=== PATIENT | female | born 2000 | race Caucasian/White ===

== ENCOUNTER 2021-09-23 22:04 | Emergency (ER) | payer SELFPAY ==
[~2021-09-23] VITALS: Ht 165 cm; Wt 51.0 kg
--- NOTE | 2021-09-23 23:24 | ED General ---
General Chief Complaint: Cough/Cold/Flu Symptoms Stated Complaint: FLU POSITIVE, CHEST PAIN, ABDOMINAL PAIN Nursing Triage Note: PT AMB TO ER WITH C/O RACING HEART AFTER LAYING DOWN FOR BED. PT SAID SHE CALLED 911 AND EMS ASSESSED HER BUT SHE DECIDED NOT TO COME AT THAT TIME. PT SAID HR GOT UP IN THE 150S TONIGHT. PT ALSO +FLU 2 DAYS AGO, COVID + SEP 09 Source of Information: Patient History of Present Illness Date Seen by Provider: Sep 23, 2021 Time Seen by Provider: 23:10 Initial Comments PT ARRIVES VIA POV FROM HOME PT STATES SHE TESTED + FOR COVID ON 09/09/21--NO TREATMENT AT THAT TIME PT BEGAN WITH COUGH AND CONGESTION, SLIGHT SHORTNESS OF BREATH, DECREASED APPETITE, HEADACHE AND BODY ACHES, AND SORE THROAT STATES SHE STARTED OTHER SYMPTOMS 09/21/21 AND TESTED + FOR INFLUENZA A AT THAT VISIT--SEEN AT [facility] BOTH TIMES HAD INCREASED COUGH, NO IMPROVEMENT IN SORE THROAT, LOW GRADE FEVER AND GI SYMPTOMS WAS GIVEN RX FOR AMOXIL AND PREDNISONE ON 09/21/21 HAS ALSO BEEN TAKING TYLENOL COLD/FLU COUGH/CONGESTION STATES TONIGHT, WHILE SHE WAS LAYING DOWN TO GO TO SLEEP AND HER HEART STARTED RACING AND CALLED EMS. IT WENT AWAY, AND THEN REFUSED TRANSPORT. IT HAPPENED AGAIN AND SHE CALLED EMS AGAIN AND THEN REFUSED TRANSPORT, THEN DECIDED TO COME HERE AFTER THEY LEFT. EACH EPISODE LASTED 10-20 MINUTES, AND HEART RATE GOT UP HIGH 150, AND SHE FELT LIKE SHE MIGHT PASS OUT NO CHEST PAIN NO SHORTNESS OF BREATH HAS HAD NAUSEA, VOMITED X 5-6 YESTERDAY--NO VOMITING TODAY, AND DIARRHEA--X 2-3 TODAY HAS LOST HER TASTE AND SMELL NO ABDOMINAL PAIN NO FEVER TODAY HEADACHE AND BODY ACHES ARE BETTER SHORTNESS OF BREATH HAS RESOLVED IS VOIDING A NORMAL AMOUNT NO PRIOR HISTORY OF CARDIAC OR RESPIRATORY PROBLEMS. NO CHRONIC MEDICAL PROBLEMS OF ANY KIND LMP: 2 1/2 WEEKS AGO. NORMAL. LIGHT SPOTTING, ON OCP'S [facility] PT IS ALSO A [employer] STUDENT FROM [employer]. Allergies and Home Medications Allergies Coded Allergies: No Known Drug Allergies (Unverified , 09/23/21) Patient Home Medication List Home Medication List Reviewed: Yes Ondansetron (Ondansetron Odt) 4 Mg Tab.rapdis, 4 MG PO Q4H Prescribed by: GILBERTO FRANKLIN on 09/24/21 0036 Review of Systems Review of Systems Constitutional: see HPI, dizziness EENTM: see HPI Respiratory: see HPI, cough Cardiovascular: see HPI, palpitations Gastrointestinal: see HPI; No abdominal pain; diarrhea, loss of appetite, nausea, vomiting Genitourinary: no symptoms reported Musculoskeletal: see HPI Skin: no symptoms reported Psychiatric/Neurological: See HPI Hematologic/Lymphatic: No Symptoms Reported Immunological/Allergic: no symptoms reported Past Znlefpw-Axbgfk-Idgunw Hx Patient Social History Tobacco Use?: No Substance use?: No Alcohol Use?: Yes Alcohol type: Wine Alcohol Frequency: Rarely Pt feels they are or have been: No Immunizations Up To Date Influenza Vaccine Up-to-Date: No; Not Current First/Initial COVID19 Vaccinat: MARCH 2021 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 oz. kg; 18.00 BMI Method: General Appearance: No Apparent Distress, WD/WN, Other (DOES NOT APPEAR ILL OR TO BE IN ANY DISCOMFORT OR DISTRESS) HEENT: PERRL/EOMI, TMs Normal, Pharynx Normal, Moist Mucous Membranes, Other (NASAL CONGESTION, CLEAR POST NASAL DRAINAGE) Neck: Normal Inspection Respiratory: Normal Breath Sounds, No Accessory Muscle Use, No Respiratory Distress Cardiovascular: No Edema, No JVD, No Murmur, Tachycardia (110) Gastrointestinal: Non Tender, Soft Back: No CVA Tenderness Extremity: Normal Capillary Refill, Normal Inspection, No Pedal Edema Neurologic/Psychiatric: Alert, Oriented x3, No Motor/Sensory Deficits, Normal 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, 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 as Tested Skin: Normal Color, Warm/Dry; No Rash Progress/Results/Core Measures Suspected Sepsis SIRS Temperature: Pulse: 95 Respiratory Rate: 18 Laboratory Tests 09/23/21 23:28: White Blood Count 5.1 Blood Pressure 124 /79 Mean: 94 Laboratory Tests 09/23/21 23:28: Creatinine 0.80, Platelet Count 179, Total Bilirubin 0.2 Results/Orders Lab Results Laboratory Tests Test 09/23/21 23:28 Range/Units White Blood Count 5.1 4.3-11.0 10^3/uL Red Blood Count 4.49 3.80-5.11 10^6/uL Hemoglobin 13.3 11.5-16.0 g/dL Hematocrit 40 35-52 % Mean Corpuscular Volume 90 80-99 fL Mean Corpuscular Hemoglobin 30 25-34 pg Mean Corpuscular Hemoglobin Concent 33 32-36 g/dL Red Cell Distribution Width 12.1 10.0-14.5 % Platelet Count 179 130-400 10^3/uL Mean Platelet Volume 9.8 9.0-12.2 fL Immature Granulocyte % (Auto) 0 % Neutrophils (%) (Auto) 92 H 42-75 % Lymphocytes (%) (Auto) 6 L 12-44 % Monocytes (%) (Auto) 2 0-12 % Eosinophils (%) (Auto) 0 0-10 % Basophils (%) (Auto) 0 0-10 % Neutrophils # (Auto) 4.7 1.8-7.8 10^3/uL Lymphocytes # (Auto) 0.3 L 1.0-4.0 10^3/uL Monocytes # (Auto) 0.1 0.0-1.0 10^3/uL Eosinophils # (Auto) 0.0 0.0-0.3 10^3/uL Basophils # (Auto) 0.0 0.0-0.1 10^3/uL Immature Granulocyte # (Auto) 0.0 0.0-0.1 10^3/uL Neutrophils % (Manual) 87 % Lymphocytes % (Manual) 4 % Monocytes % (Manual) 2 % Eosinophils % (Manual) 0 % Basophils % (Manual) 0 % Band Neutrophils 7 % Blood Morphology Comment NORMAL Urine Color YELLOW Urine Clarity CLEAR Urine pH 6.0 5-9 Urine Specific [place] 1.015 L 1.016-1.022 Urine Protein NEGATIVE NEGATIVE Urine Glucose (UA) 3+ H NEGATIVE Urine Ketones NEGATIVE NEGATIVE Urine Nitrite NEGATIVE NEGATIVE Urine Bilirubin NEGATIVE NEGATIVE Urine Urobilinogen 0.2 < = 1.0 MG/DL Urine Leukocyte Esterase NEGATIVE NEGATIVE Urine RBC (Auto) NEGATIVE NEGATIVE Urine RBC NONE /HPF Urine WBC 0-2 /HPF Urine Squamous Epithelial Cells 2-5 /HPF Urine Crystals NONE /LPF Urine Bacteria FEW H /HPF Urine Casts NONE /LPF Urine Mucus NEGATIVE /LPF Urine Culture Indicated YES Sodium Level 136 135-145 MMOL/L Potassium Level 3.9 3.6-5.0 MMOL/L Chloride Level 106 98-107 MMOL/L Carbon Dioxide Level 18 L 21-32 MMOL/L Anion Gap 12 5-14 MMOL/L Blood Urea Nitrogen 7 7-18 MG/DL Creatinine 0.80 0.60-1.30 MG/DL Estimat Glomerular Filtration Rate 108 BUN/Creatinine Ratio 9 Glucose Level 167 H 70-105 MG/DL Calcium Level 8.9 8.5-10.1 MG/DL Corrected Calcium 8.8 8.5-10.1 MG/DL Total Bilirubin 0.2 0.1-1.0 MG/DL Aspartate Amino Transf (AST/SGOT) 15 5-34 U/L Alanine Aminotransferase (ALT/SGPT) 7 0-55 U/L Alkaline Phosphatase 84 40-136 U/L Total Protein 7.4 6.4-8.2 GM/DL Albumin 4.1 3.2-4.5 GM/DL Free Thyroxine 1.01 0.70-1.48 NG/DL TSH [place] Testing 0.27 L 0.35-4.94 UIU/ML My Orders Orders - GILBERTO FRANKLIN DO Ua Culture If Indicated (09/23/21 23:09) Chest 1 View, Ap/Pa Only (09/23/21 23:09) Ed Iv/Invasive Line Start (09/23/21 23:20) Urine Bedside (09/23/21 23:20) Ekg Tracing (09/23/21:20) Monitor-Rhythm Ecg Trace Only (09/23/21 23:20) Cbc With Automated Diff (09/23/21 23:20) Comprehensive Metabolic Panel (09/23/21 23:20) Thyroid Analyzer (09/23/21 23:20) Ed Iv/Invasive Line Start (09/23/21 23:20) Lactated Ringers (Lr 1000 Ml Iv Solution (09/23/21 23:30) Ondansetron Injection (Zofran Injectio (09/23/21 23:30) Manual Differential (09/23/21 23:28) Urine Culture (09/23/21 23:28) Free T4 (Free Thyroxine) (09/23/21 23:28) Ed Iv/Invasive Line Start (09/24/21 00:25) Ns Iv 1000 Ml (Sodium Chloride 0.9%) (09/24/21 00:30) Rx-Ondansetron Po (Rx-Zofran Po) (09/24/21 00:25) Medications Given in ED Current Medications Medications Dose Ordered Sig/Juan Carlos Route Start Time Stop Time Status Last Admin Dose Admin Lactated Ringer's 1,000 ml @ 0 mls/hr Q0M ONCE IV 09/23/21 23:30 09/23/21 23:31 DC 09/23/21 23:42 999 MLS/HR Ondansetron HCl 4 mg ONCE ONCE IVP 09/23/21 23:30 09/23/21 23:31 DC 09/23/21 23:42 4 MG Vital Signs/I&O 09/23/21 09/24/21 22:50 01:05 Temp 36.8 36.8 Pulse 95 84 Resp 18 18 B/P (MAP) 124/79 (94) 124/66 Pulse Ox 98 100 O2 Delivery Room Air Room Air Capillary Refill : Blood Pressure Mean: 94 Progress Note : Progress Note PLACED IN ISOLATION ROOM PPE WORN GIVEN IV FLUIDS AND ZOFRAN--FEELS BETTER HR 110 ON ARRIVAL, QUICKLY DOWN TO 80'S SHORTLY AFTER ARRIVAL, AND REMAINED IN 80'S FOR REMAINDER OF ER STAY, IN VERY REGULAR NORMAL SINUS RHYTHM NO COUGH NO DYSPNEA NO HYPOXIA NO FEVER SUSPECT PT'S SYMPTOMS ARE COMBINATION OF MILD DEHYDRATION, EFFECTS OF PREDNISONE + COLD MEDICATION. PT STATES SHE HAS NEVER TAKEN THAT MUCH PREDNISONE BEFORE. HAS TAKEN IT ONCE OR TWICE IN PAST, BUT NEVER MORE THAN 20 MG--STATES SHE HAS BEEN PRESCRIBED 40 MG FOR CURRENT SYMPTOMS ALSO SUSPECT ELEVATED BLOOD GLUCOSE IS DUE TO PREDNISONE ECG Initial ECG Impression Date: Sep 23, 2021 Initial ECG Impression Time: 23:21 Initial ECG Rate: 83 Initial ECG Rhythm: Normal Sinus (SINUS ARRHYTHMIA. ) Diagnostic Imaging Comments CXR--NO ACUTE PROCESS, PENDING RADIOLOGIST REVIEW Reviewed: Reviewed by Me Departure Impression Primary Impression: Influenza A Additional Impressions: RECENT COVID-19 VIRUS Mild dehydration MILD HYPERGLYCEMIA TRANSIENT SINUS TACHYCARDIA SUSPECTED ADVERSE EFFECT OF MEDICATION Disposition: 01 HOME, SELF-CARE Condition: Improved Departure-Patient Inst. Decision time for Depature: 00:25 Referrals: [facility] Patient Instructions: COVID-19 ED, Dehydration, Adult ED, Flu, Adult ED Add. Discharge Instructions: LOTS OF CLEAR LIQUIDS--WATER, BROTH, JELLO, GATORAD CONTINUE AMOXIL PRESCRIBED HOLD PREDNISONE USE PLAIN TYLENOL AND PLAIN IBUPROFEN NEEDED FOR PAIN OR FEVER USE FLONASE OR NASACORT NASAL SPRAY FOR NASAL CONGESTION FOLLOW UP WITH [facility]-3 DAYS IF SYMPTOMS PERSIST. All discharge instructions reviewed with patient and/or family. Voiced understan kelly. Scripts Ondansetron (Ondansetron Odt) 4 Mg Tab.rapdis 4 MG PO Q4H for Nausea/Vomiting, #10 TAB Prov: GILBERTO FRANKLIN DO 09/24/21 GILBERTO FRANKLIN DO Sep 23, 2021 23:24
[2021-09-23] MEDS ORDERED: LACTATED RINGERS 1,000 ML IV ONE (23:30)
[2021-09-23] MEDS ORDERED: ONDANSETRON 4 MG/2 ML (SDV) Z0FRAN IVP ONE (23:30)
[2021-09-23 23:38] LABS: BASOPHILS % (AUTO) 0 % (0-10); BILIRUBIN,URINE NEGATIVE (NEGATIVE); CLARITY,URINE CLEAR; COLOR,URINE YELLOW; EOSINOPHILS % (AUTO) 0 % (0-10); GLUCOSE, URINE (UA) 3+ (NEGATIVE); HEMATOCRIT 40 % (35-52); HEMOGLOBIN 13.3 g/dL (11.5-16.0); KETONES,URINE NEGATIVE (NEGATIVE); LEUKOCYTE ESTERASE ,URINE NEGATIVE (NEGATIVE); LYMPHOCYTES # (AUTO) 0.3 10^3/uL (1.0-4.0); LYMPHOCYTES % (AUTO) 6 % (12-44); MEAN CORPUSCULAR HEMOGLOBIN 30 pg (25-34); MEAN CORPUSCULAR HGB CONC 33 g/dL (32-36); MEAN CORPUSCULAR VOLUME 90 fL (80-99); MEAN PLATELET VOLUME 9.8 fL (9.0-12.2); MONOCYTES # (AUTO) 0.1 10^3/uL (0.0-1.0); MONOCYTES % (AUTO) 2 % (0-12); NEUTROPHILS # (AUTO) 4.7 10^3/uL (1.8-7.8); NEUTROPHILS % (AUTO) 92 % (42-75); NITRITE,URINE NEGATIVE (NEGATIVE); PLATELET COUNT 179 10^3/uL (130-400); PROTEIN,URINE NEGATIVE (NEGATIVE); WHITE BLOOD COUNT 5.1 10^3/uL (4.3-11.0)
[2021-09-23 23:53] LABS: ALBUMIN 4.1 GM/DL (3.2-4.5); POTASSIUM 3.9 MMOL/L (3.6-5.0)
[2021-09-23 23:54] LABS: CALCIUM 8.9 MG/DL (8.5-10.1)
[2021-09-23 23:56] LABS: TOTAL PROTEIN 7.4 GM/DL (6.4-8.2)
[2021-09-23 23:57] LABS: BILIRUBIN,TOTAL 0.2 MG/DL (0.1-1.0)
[2021-09-23 23:59] LABS: CREATININE SERUM 0.8 MG/DL (0.60-1.30)
[2021-09-24 00:08] LABS: BACTERIA,URINE FEW /HPF; BAND NEUTROPHILS 7 %; BASOPHILS % (MANUAL) 0 %; EOSINOPHILS % (MANUAL) 0 %; LYMPHOCYTES % (MANUAL) 4 %; MONOCYTES % (MANUAL) 2 %; NEUTROPHILS % (MANUAL) 87 %; RBC MORPH NORMAL; WBC,URINE 0-2 /HPF
[2021-09-24 00:22] LABS: TSH (THYROID ANALYZER) 0.27 UIU/ML (0.35-4.94)
[2021-09-24] MEDS ORDERED: RX-ONDANSETRON 4 MG ODT (ZOFRAN) PPK #4 PO STA (00:25)
[2021-09-24] MEDS ORDERED: NS IV 1000 ML 1,000 ML IV SCH (00:30)
[2021-09-24] MEDS ORDERED: ONDA4TAB11 PO (00:36)
[2021-09-24 00:52] LABS: FREE T4 (FREE THYROXINE) 1.01 NG/DL (0.70-1.48)
[2021-09-24 01:05] VITALS: BP 124/66
--- NOTE | 2021-09-24 05:45 | Diagnostic Imaging Report ---
Indication: Lower respiratory infection Portable chest 11:46 PM Heart size and pulmonary vascularity are normal. Lungs are clear. There are no effusions or pneumothoraces. IMPRESSION: No acute abnormalities in the chest Dictated by: Dictated on workstation # [id number]
== END 2021-09-24 01:08 ==
LOC: EDUNIT# 22:04 → ER 22:07
DX: E86.0 Dehydration (principal); T38.0X5A Adverse effect of glucocorticoids and synthetic analogues, initial encounter; J10.1 Influenza due to other identified influenza virus with other respiratory manifestations; R00.0 Tachycardia, unspecified; R73.9 Hyperglycemia, unspecified; Z86.16 Personal history of COVID-19
CPT/HCPCS: 36415; 71045; 80053; 81000; 84439; 84443; 84703; 85007; 85027; 87088; 93005; 93041

== ENCOUNTER → 2021-10-27 | Outpatient (CLI) | payer SELFPAY ==
[~2021-10-27] MED LIST: ONDA4TAB11 PO
== END ==
LOC: CARD 13:00
PROVIDERS: ATTEND Family Medicine
DX: R00.2 Palpitations (principal)
CPT/HCPCS: 93306

== ENCOUNTER 2022-11-07 22:09 | Emergency (ER) | payer SELFPAY ==
[~2022-11-07] VITALS: Ht 165 cm; Wt 50.0 kg
[2022-11-07] MEDS ORDERED: ASPIRIN 81 MG CHEW (CHILDREN'S ASA) PO ONE (22:30)
[2022-11-07 22:32] LABS: BILIRUBIN,URINE NEGATIVE (NEGATIVE); CLARITY,URINE SL CLOUDY; COLOR,URINE YELLOW; GLUCOSE, URINE (UA) NEGATIVE (NEGATIVE); KETONES,URINE NEGATIVE (NEGATIVE); LEUKOCYTE ESTERASE ,URINE NEGATIVE (NEGATIVE); NITRITE,URINE NEGATIVE (NEGATIVE); PH,URINE 6.5 (5-9); PROTEIN,URINE NEGATIVE (NEGATIVE)
[2022-11-07 22:35] LABS: BASOPHILS % (AUTO) 1 % (0-10); EOSINOPHILS # (AUTO) 0.1 10^3/uL (0.0-0.3); EOSINOPHILS % (AUTO) 1 % (0-10); HEMATOCRIT 43 % (35-52); HEMOGLOBIN 14.4 g/dL (11.5-16.0); LYMPHOCYTES # (AUTO) 2.4 10^3/uL (1.0-4.0); LYMPHOCYTES % (AUTO) 28 % (12-44); MEAN CORPUSCULAR HEMOGLOBIN 30 pg (25-34); MEAN CORPUSCULAR HGB CONC 33 g/dL (32-36); MEAN CORPUSCULAR VOLUME 91 fL (80-99); MEAN PLATELET VOLUME 9.8 fL (9.0-12.2); MONOCYTES # (AUTO) 0.7 10^3/uL (0.0-1.0); MONOCYTES % (AUTO) 9 % (0-12); NEUTROPHILS # (AUTO) 5.4 10^3/uL (1.8-7.8); NEUTROPHILS % (AUTO) 63 % (42-75); PLATELET COUNT 247 10^3/uL (130-400); WHITE BLOOD COUNT 8.7 10^3/uL (4.3-11.0)
[2022-11-07 22:40] LABS: ALBUMIN 4.3 GM/DL (3.2-4.5); CHLORIDE 105 MMOL/L (98-107); SODIUM 140 MMOL/L (135-145)
[2022-11-07 22:41] LABS: AMYLASE 49 U/L (25-125); CALCIUM 10.1 MG/DL (8.5-10.1)
[2022-11-07 22:42] LABS: AMORPHOUS SEDIMENT,UR FEW AMOR URATES /LPF; BACTERIA,URINE NEGATIVE /HPF
[2022-11-07 22:43] LABS: FIBRIN DEGRADATION PRODUCTS 0.37 UG/ML (0.00-0.49); GLUCOSE 84 MG/DL (70-105); PROTHROMBIN TIME PATIENT 13.4 SEC (12.2-14.7); TOTAL PROTEIN 7.9 GM/DL (6.4-8.2)
[2022-11-07 22:44] LABS: BILIRUBIN,TOTAL 0.3 MG/DL (0.1-1.0); CARBON DIOXIDE 22 MMOL/L (21-32)
--- NOTE | 2022-11-07 22:45 | ED Chest Pain ---
General Chief Complaint: Chest Pain Stated Complaint: CHEST PAIN Nursing Triage Note: Patient states chest pain started about 1600 today while she was laying in bed, she advised that she feels like her chest is tight and that it is hard to breathe. She denies previous cardiac history and states several life stressors are currently present. Source: patient History of Present Illness Date Seen by Provider: Nov 07, 2022 Time Seen by Provider: 22:20 Initial Comments PT ARRIVES VIA POV FROM HOME PT STATES AROUND 1600 TODAY, SHE GOT UP OUT OF BED, AND HAD A SUDDEN SEVERE SHARP STABBING PAIN IN LEFT LATERAL CHEST / LEFT LATERAL BREAST BELOW LEFT AXILLA PAIN RADIATES AROUND TO LEFT BACK PAIN IS WORSE WITH BREATHING, MOVING OR TALKING. WHEN SHE WAS LAYING DOWN THE PAIN WAS 5/10, AND WHEN SHE WAS MAKING THE BED IT WAS 10/10 NO SHORTNESS OF BREATH, JUST HURTS TO BREATHE. NO NAUSEA/VOMITING NO COUGH OR URI SYMPTOMS NO FEVER/SWEATS/CHILLS NO DIZZINESS OR SYNCOPE NO PALPITATIONS NO HISTORY OF SIMILAR NO UNUSUAL ACTIVITY. 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 SHE LAID DOWN AFTER SHE GOT HOME FROM WORK AND SHE WAS GETTING OUT OF BED, SHE HAD THE SUDDEN ONSET OF SHARP STABBING PAIN. LATER STATES SHE JUST FOUND OUT HER BOYFRIEND CHEATED ON HER NO RELIEF WITH TUMS, OR HEARTBURN MEDICATION NO HISTORY OF SIMILAR PT HAS HISTORY OF BIPOLAR, AND STOPPED TAKING HER LAMOTRIGINE 2-3 MONTHS AGO--SELF DC'D. SHE STATES SHE USED TO PASS OUT ALOT IN HIGH SCHOOL, BUT HAS NOT PASSED OUT SIN CE SHE HAS BEEN OUT OF HIGH SCHOOL. LMP 1 WEEK AGO. SHE STOPPED TAKING CONTROL PILLS 2-3 MONTHS AGO. PT SMOKES THC ON REGULAR BASIS, AND FOR THE LAST WEEK SHE HAS ALSO BEEN SMOKING "DELTA 8". SHE HAS NOT SMOKED TODAY SHE DRINKS 5-6 BEERS ABOUT TWICE A WEEK. NO ALCOHOL TODAY. PCP: DR. FELIPE ELLINGTON U STUDENT Allergies and Home Medications Allergies Coded Allergies: No Known Drug Allergies (Unverified , 09/23/21) Patient Home Medication List Home Medication List Reviewed: Yes Cyclobenzaprine HCl (Cyclobenzaprine HCl) 10 Mg Tablet, 10 MG PO Q8H PRN for SPASMS Prescribed by: GILBERTO FRANKLIN on 11/07/22 2348 Ketorolac Tromethamine (Ketorolac Tromethamine) 10 Mg Tablet, 10 MG PO Q6H Prescribed by: GILBERTO FRANKLIN on 11/07/22 2348 Ondansetron (Ondansetron Odt) 4 Mg Tab.rapdis, 4 MG PO Q4H Prescribed by: GILBERTO FRANKLIN on 09/24/21 0036 Review of Systems Review of Systems Constitutional: no symptoms reported EENTM: No Symptoms Reported Respiratory: See HPI Cardiovascular: See HPI Gastrointestinal: No Symptoms Reported Genitourinary: No Symptoms Reported Musculoskeletal: see HPI Skin: no symptoms reported Psychiatric/Neurological: Anxiety Endocrine: No Symptoms Reported Hematologic/Lymphatic: No Symptoms Reported Past Nnvlzzo-Lifpca-Wtitpt Hx Patient Social History Tobacco Use?: No Use of E-Cig and/or Vaping dev: Yes E-Cig or Vaping type used: Nicotine, Other Use of E-Cig and/or Vaping Jacek: Current Everyday User Substance use?: Yes Substance type: Marijuana Additional substance use comme: Delta 8 pen Substance frequency: Daily Alcohol Use?: Yes Alcohol type: Beer Alcohol Frequency: Couple times a week Immunizations Up To Date First/Initial COVID19 Vaccinat: MARCH 2021 Second COVID19 Vaccination Baljeet: MARCH 2021 Third COVID19 Vaccination Date: MARCH 2021 Past Medical History Surgery/Hospitalization HX: EPILEPSY, BIPOLAR Surgeries: Yes (ENDOMETRIOSIS SURGERY--LAPAROSCOPY; BMT'S; EAR DRUM RECONSTRUCTION) Ear Surgery Respiratory: No Cardiac: Yes (FREQ SYNCOPE IN HIGH SCHOOL, NONE SINCE OUT OF HIGH SCHOOL) Syncope Neurological: No : No Last Menstrual Period: Oct 31, 2022 Reproductive Disorders: No Genitourinary: No Gastrointestinal: No Musculoskeletal: No Endocrine: No HEENT: Yes (BMT'S; EAR DRUM RECONSTRUCTION) Chronic Ear Infection Cancer: No Psychosocial: Yes Anxiety, Bipolar, Depression Integumentary: No Blood Disorders: No Physical Exam Vital Signs Vital Signs - First Documented 11/07/22 22:13 Pulse 69 Resp 18 B/P (MAP) 135/100 (112) Pulse Ox 99 O2 Delivery Nasal Cannula Capillary Refill : Less Than 3 Seconds Height, Weight, BMI Height: '" Weight: lbs. oz. kg; 18.00 BMI Method: General Appearance: WD/WN, Anxious, Other (VERY DRAMATIC, CRYING UNCONTROLLABLY--NEARLY HYSTERICAL, HOLDING AND RUBBING LEFT LATERAL CHEST AREA) HEENT: PERRL/EOMI Neck: Normal Inspection Respiratory: Chest Non Tender, Normal Breath Sounds, No Accessory Muscle Use, No Respiratory Distress, Other (NO EXTERNAL EVIDENCE OF TRAUMA. NO CREPITANCE OR SUB Q AIR. NO DEFORMITY. 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 Skin: Normal Color, Cool; No Rash Progress/Results/Core Measures Results/Orders Lab Results Laboratory Tests Test 11/07/22 22:16 11/07/22 22:22 11/07/22 22:27 Range/Units White Blood Count 8.7 4.3-11.0 10^3/uL Red Blood Count 4.73 3.80-5.11 10^6/uL Hemoglobin 14.4 11.5-16.0 g/dL Hematocrit 43 35-52 % Mean Corpuscular Volume 91 80-99 fL Mean Corpuscular Hemoglobin 30 25-34 pg Mean Corpuscular Hemoglobin Concent 33 32-36 g/dL Red Cell Distribution Width 12.6 10.0-14.5 % Platelet Count 247 130-400 10^3/uL Mean Platelet Volume 9.8 9.0-12.2 fL Immature Granulocyte % (Auto) 0 % Neutrophils (%) (Auto) 63 42-75 % Lymphocytes (%) (Auto) 28 12-44 % Monocytes (%) (Auto) 9 0-12 % Eosinophils (%) (Auto) 1 0-10 % Basophils (%) (Auto) 1 0-10 % Neutrophils # (Auto) 5.4 1.8-7.8 10^3/uL Lymphocytes # (Auto) 2.4 1.0-4.0 10^3/uL Monocytes # (Auto) 0.7 0.0-1.0 10^3/uL Eosinophils # (Auto) 0.1 0.0-0.3 10^3/uL Basophils # (Auto) 0.0 0.0-0.1 10^3/uL Immature Granulocyte # (Auto) 0.0 0.0-0.1 10^3/uL Prothrombin Time 13.4 12.2-14.7 SEC INR Comment 1.0 0.8-1.4 Activated Partial Thromboplast Time 28 24-35 SEC D-Dimer 0.37 0.00-0.49 UG/ML Sodium Level 140 135-145 MMOL/L Potassium Level 4.0 3.6-5.0 MMOL/L Chloride Level 105 98-107 MMOL/L Carbon Dioxide Level 22 21-32 MMOL/L Anion Gap 13 5-14 MMOL/L Blood Urea Nitrogen 16 7-18 MG/DL Creatinine 1.04 0.60-1.30 MG/DL Estimat Glomerular Filtration Rate 78 BUN/Creatinine Ratio 15 Glucose Level 84 70-105 MG/DL Calcium Level 10.1 8.5-10.1 MG/DL Corrected Calcium 9.9 8.5-10.1 MG/DL Magnesium Level 1.9 1.6-2.4 MG/DL Total Bilirubin 0.3 0.1-1.0 MG/DL Aspartate Amino Transf (AST/SGOT) 26 5-34 U/L Alanine Aminotransferase (ALT/SGPT) 27 0-55 U/L Alkaline Phosphatase 95 40-136 U/L Total Creatine Kinase 185 H 29-168 U/L Creatine Kinase MB 1.2 <6.6 NG/ML Myoglobin 22.4 10.0-92.0 NG/ML Troponin I < 0.028 <0.028 NG/ML B-Type Natriuretic Peptide < 10.0 <100.0 PG/ML Total Protein 7.9 6.4-8.2 GM/DL Albumin 4.3 3.2-4.5 GM/DL Amylase Level 49 25-125 U/L Lipase 31 8-78 U/L Serum Test, Qualitative NEGATIVE NEGATIVE Urine Color YELLOW Urine Clarity SL CLOUDY Urine pH 6.5 5-9 Urine Specific [place] 1.015 L 1.016-1.022 Urine Protein NEGATIVE NEGATIVE Urine Glucose (UA) NEGATIVE NEGATIVE Urine Ketones NEGATIVE NEGATIVE Urine Nitrite NEGATIVE NEGATIVE Urine Bilirubin NEGATIVE NEGATIVE Urine Urobilinogen 0.2 < = 1.0 MG/DL Urine Leukocyte Esterase NEGATIVE NEGATIVE Urine RBC (Auto) NEGATIVE NEGATIVE Urine RBC NONE /HPF Urine WBC NONE /HPF Urine Squamous Epithelial Cells 2-5 /HPF Urine Renal Epithelial Cells NONE /HPF Urine Crystals PRESENT H /LPF Urine Amorphous Sediment FEW SELENE URATES H /LPF Urine Bacteria NEGATIVE /HPF Urine Casts NONE /LPF Urine Mucus NEGATIVE /LPF Urine Culture Indicated NO Urine Opiates Screen NEGATIVE NEGATIVE Urine Oxycodone Screen NEGATIVE NEGATIVE Urine Methadone Screen NEGATIVE NEGATIVE Urine Propoxyphene Screen NEGATIVE NEGATIVE Urine Barbiturates Screen NEGATIVE NEGATIVE Ur Tricyclic Antidepressants Screen NEGATIVE NEGATIVE Urine Phencyclidine Screen NEGATIVE NEGATIVE Urine Amphetamines Screen NEGATIVE NEGATIVE Urine Methamphetamines Screen NEGATIVE NEGATIVE Urine Benzodiazepines Screen NEGATIVE NEGATIVE Urine Cocaine Screen NEGATIVE NEGATIVE Urine Cannabinoids Screen POSITIVE H NEGATIVE Influenza Type A (RT-PCR) Not Detected Not Detecte Influenza Type B (RT-PCR) Not Detected Not Detecte SARS-CoV-2 RNA (RT-PCR) Not Detected Not Detecte My Orders Orders - GILBERTO FRANKLIN DO Ekg Tracing (11/07/22 22:15) Ed Iv/Invasive Line Start (11/07/22 22:22) Monitor-Rhythm Ecg Trace Only (11/07/22 22:22) Chest 1 View, Ap/Pa Only (11/07/22 22:22) Amylase (11/07/22 22:22) Bnp Keyla (11/07/22 22:22) Cbc With Automated Diff (11/07/22 22:22) Comprehensive Metabolic Panel (11/07/22 22:22) Creatine Kinase (11/07/22 22:22) Creatine Kinase Mb (11/07/22 22:22) Fibrin Degradation Products (11/07/22 22:22) Drug Screen Stat (Urine) (11/07/22 22:22) Hcg,Qualitative Serum (11/07/22 22:22) Lipase (11/07/22 22:22) Magnesium (11/07/22 22:22) Protime With Inr (11/07/22 22:22) Partial Thromboplastin Time (11/07/22 22:22) Ua Culture If Indicated (11/07/22 22:22) Myoglobin Serum (11/07/22 22:22) Troponin I [place] (11/07/22 22:22) Aspirin Chewable Tablet (Baby Aspirin Ch (11/07/22 22:30) Covid 19 Inhouse Test (11/07/22 22:22) Influenza A And B By Pcr (11/07/22 22:22) Isolation Central Supply Req (11/07/22 22:22) Ketorolac Injection (Toradol Injection) (11/07/22 23:00) Orphenadrine Inj (Ed Only) (Norflex Inje (11/07/22 23:30) Diphenhydramine Injection (Benadryl Inje (11/07/22 23:30) Medications Given in ED Current Medications Medications Dose Ordered Sig/Juan Carlos Route Start Time Stop Time Status Last Admin Dose Admin Aspirin 324 mg ONCE ONCE PO 11/07/22 22:30 11/07/22 22:31 DC 11/07/22 22:30 324 MG Diphenhydramine HCl 50 mg ONCE ONCE IVP 11/07/22 23:30 11/07/22 23:31 DC 11/07/22 23:40 50 MG Ketorolac Tromethamine 30 mg ONCE ONCE IVP 11/07/22 23:00 11/07/22 23:01 DC 11/07/22 23:03 30 MG Orphenadrine Citrate 60 mg ONCE ONCE IV 11/07/22 23:30 11/07/22 23:31 DC 11/07/22 23:41 60 MG Vital Signs/I&O 11/07/22 22:13 Pulse 69 Resp 18 B/P (MAP) 135/100 (112) Pulse Ox 99 O2 Delivery Nasal Cannula Blood Pressure Mean: 112 Progress Progress Note : Progress Note COVID AND FLU TESTING DONE GIVEN TORADOL FOR PAIN PT STATES MILD RELIEF WITH TORADOL, BUT PT IS CALMER AND NO LONGER CRYING UNCONTROLLABLY. GIVEN NORFLEX AND BENADRYL--SYMPTOMS COMPLETELY RESOLVED NO DETERIORATION IN PT'S CONDITION VITALS STABLE AND ESSENTIALLY NORMAL NO COUGH NO DYSPNEA NO HYPOXIA NO ARRHYTHMIAS DURING ER STAY NO EVIDENCE OF ACUTE CORONARY SYNDROME, P.E., PNEUMOTHORAX, PNEUMONIA, OR LIFE THREATENING ILLNESS BASED ON LAB, VITALS, EKG AND CXR. SYMPTOMS ARE IMPROVED PT CALMS DOWN, AND IS NO LONGER CRYING DISCUSSED TEST RESULTS, ANTICIPATED COURSE, SYMPTOMATIC TREATMENT, NEED FOR FOLLOW UP AND RETURN PRECAUTIONS Initial ECG Impression Date: Nov 07, 2022 Initial ECG Impression Time: 22:19 Initial ECG Rate: 68 Initial ECG Rhythm: Normal Sinus (SINUS ARRHYTHMIA) Initial ECG Comparisson: No Previous ECG Available Comment INTERPRETED BY ME Diagnostic Imaging Comments CXR--NO ACUTE PROCESS, PENDING RADIOLOGIST REVIEW Reviewed: Reviewed by Me Departure Impression Primary Impression: Chest wall pain Additional Impression: Anxiety Disposition: HOME, SELF-CARE Condition: Stable Departure-Patient Inst. Decision time for Depature: 23:46 Referrals: FELIPE ELLINGTON MD (PCP) Primary Care Physician Patient Instructions: Anxiety, Adult ED, Chest Pain That Is Not Caused by the Heart (DC) Add. Discharge Instructions: HOME, REST ACTIVITIES TOLERATED FOLLOW UP WITH YOUR DR OR WITH [facility] THIS W[facility] FOR FURTHER CARE--CALL IN THE MORNING TO SCHEDULE A FOLLOW UP APPOINTMENT RETURN TO ER IF SYMPTOMS WORSEN All discharge instructions reviewed with patient and/or family. Voiced understanding. Scripts Ketorolac Tromethamine (Ketorolac Tromethamine) 10 Mg Tablet 10 MG PO Q6H for Pain, #15 TAB Prov: GILBERTO FRANKLIN DO 11/07/22 Cyclobenzaprine HCl (Cyclobenzaprine HCl) 10 Mg Tablet 10 MG PO Q8H PRN for SPASMS, #15 TAB 0 Refills Prov: GILBERTO FRANKLIN DO 11/07/22 GILBERTO FRANKLIN DO Nov 07, 2022 22:45
[2022-11-07 22:46] LABS: ALKALINE PHOSPHATASE 95 U/L (40-136); CREATININE SERUM 1.04 MG/DL (0.60-1.30); GFR ESTIMATED 78
[2022-11-07 22:47] LABS: BUN/CREATININE RATIO 15
[2022-11-07 22:49] LABS: ALANINE AMINOTRANSFERASE 27 U/L (0-55); MAGNESIUM 1.9 MG/DL (1.6-2.4)
[2022-11-07 22:51] LABS: CREATINE KINASE 185 U/L (29-168); LIPASE 31 U/L (8-78)
[2022-11-07 22:53] LABS: AMPHETAMINE SCREEN, URINE NEGATIVE (NEGATIVE); BARBITURATE SCREEN URINE NEGATIVE (NEGATIVE); BENZODIAZEPINES SCREEN URINE NEGATIVE (NEGATIVE); CANNABINOID SCREEN, URINE POSITIVE (NEGATIVE); COCAINE SCREEN URINE NEGATIVE (NEGATIVE); METHADONE STAT NEGATIVE (NEGATIVE); OPIATE SCREEN URINE NEGATIVE (NEGATIVE); OXYCODONE STAT NEGATIVE (NEGATIVE); PROPOXYPHENE STAT NEGATIVE (NEGATIVE); TRICYCLIC ANTIDEPRESSANTS SCRE NEGATIVE (NEGATIVE)
[2022-11-07 22:57] LABS: CREATINE KINASE MB 1.2 NG/ML (<6.6)
[2022-11-07] MEDS ORDERED: KETOROLAC 30 MG/ML VIAL IVP ONE (23:00)
[2022-11-07] MEDS ORDERED: ORPHENADRINE 60 MG/2 ML (NORFLEX) AMP (ED ONLY) IV ONE (23:30)
[2022-11-07] MEDS ORDERED: diphenhydrAMINE 50 MG/ML INJ (BENADRYL) IVP ONE (23:30)
[2022-11-07] MEDS ORDERED: CYCL10TA25 PO (23:48)
[2022-11-07] MEDS ORDERED: KETO10TA PO (23:48)
[2022-11-08 00:05] VITALS: BP 132/86
--- NOTE | 2022-11-08 08:38 | Diagnostic Imaging Report ---
INDICATION: Chest pain. Comparison is made with prior examination of 09/23/2021. FINDINGS: The heart size, mediastinal configuration, and pulmonary vascularity are within normal limits. There is no pleural effusion, pneumothorax, or pneumonia. The osseous structures are unremarkable. IMPRESSION: No acute cardiopulmonary abnormality. Dictated by: Dictated on workstation # [id number]
== END 2022-11-08 00:08 | disposition home or self-care (01) ==
LOC: EDUNIT# 22:09 → ER 22:10
DX: R07.89 Other chest pain (principal); F41.9 Anxiety disorder, unspecified; F31.9 Bipolar disorder, unspecified; T42.6X6A Underdosing of other antiepileptic and sedative-hypnotic drugs, initial encounter; F17.290 Nicotine dependence, other tobacco product, uncomplicated; Z91.128 Patient's intentional underdosing of medication regimen for other reason; Z20.822 Contact with and (suspected) exposure to COVID-19; Z28.311 Partially vaccinated for COVID-19
CPT/HCPCS: 36415; 71045; 80053; 80306; 81000; 82150; 82550; 82553; 83690; 83735; 83874; 83880; 84484; 84703; 85025; 85379; 85610; 85730; 87636; 93005; 93041